=== PATIENT | male | born 2000 | race Caucasian/White ===

== ENCOUNTER 2024-03-31 22:08 | Emergency (ER) | payer OTHER ==
--- NOTE | 2024-03-31 22:43 | ED Physician Documentation ---
PD HPI UPPER EXT INJURY - Stated complaint Stated Complaint: LT SHOULDER INJ - Chief complaint Chief Complaint: Trauma Ext - History obtained from History obtained from: Patient - Additonal information Additional information: The patient comes to the emergency department chief complaint of left shoulder pain after falling out of a nonmoving vehicle this evening at his job at the [employer]. He states he fell directly onto the lateral aspect of his shoulder and felt a "pop". It felt like when he moved his shoulder that it "popped in and out". He points to his AC joint area as the location of the pain and popping sensation. He also indicates some pain going across his shoulder ridge up into the musculature of his neck along the trapezius distribution. He denies any other injuries at this time. PD PAST MEDICAL HISTORY - Past Medical History Past Medical History: No Cardiovascular: None Respiratory: None Neuro: None Endocrine/Autoimmune: None GI: None : None HEENT: None Psych: None Musculoskeletal: None Derm: None - Past Surgical History Past Surgical History: No - Allergies Allergies/Adverse Reactions: Allergies Allergy/AdvReac Type Severity Reaction Status Date / Time No Known Drug Allergies Allergy Verified 03/31/24 22:11 - Social History Does the pt smoke?: No Smoking Status: Never smoker Does the pt drink ETOH?: No Does the pt have substance abuse?: No - Immunizations Immunizations are current?: Yes - POLST Patient has POLST: No PD ED PE NORMAL - Vitals Vital signs reviewed: Yes - General General: Alert and oriented X 3, No acute distress, Well developed/nourished - HEENT HEENT: Atraumatic, EOMI, Moist mucous membranes - Neck Neck: Supple, no meningeal sign - Cardiac Cardiac: Strong equal pulses - Respiratory Respiratory: No respiratory distress - Derm Derm: Normal color, Warm and dry, No rash - Extremities Extremities: No deformity, Other (TTP over L AC joint. Intact ROM passively, except some limitation with internal rotation and abduction after 90 degrees. humeral head palpable in glenoid fossa.) - Neuro Neuro: Alert and oriented X 3 - Psych Psych: Normal mood, Normal affect Results - Vitals Vitals: Oxygen O2 Source Room air - Rads (name of study) L shoulder XR series Relevant Findings:: Final report received, See rad report (neg) PD Medical Decision Making - ED course Complexity details: reviewed results, re-evaluated patient, considered differential, d/w patient ED course: I d/w pt that he has likely sprained his AC joint, based on exam, though there is no separation on XR or clinically. We have also discussed symptomatic management at home, and the expected course of recovery/sx. We have discussed the need for follow-up. Departure - Departure Disposition: 01 Home, Self Care Clinical Impression: Acromioclavicular sprain Qualifiers: Encounter type: initial encounter Laterality: left Qualified Code(s): S43.52XA - Sprain of left acromioclavicular joint, initial encounter Condition: Stable Instructions: ED Sprain AC Joint Comments: Your shoulder x-ray looks good. As we discussed, you have most likely sprained your acromioclavicular joint, The joint that joins the 2 bones that formed the lip/cup of your shoulder joint. This is very common injury when you have a blunt force to the side of your shoulder. In general, these heal up on their own, though there can sometimes be some chronic clicking or pain. [place] or if you want to discuss having an MRI if your symptoms have not improved in the next 2 or 3 weeks. I will give you the next couple of days off work if needed to let your shoulder settle down a bit. You may use ibuprofen and Tylenol to help with the pain. You may also use ice packs. You should avoid any strenuous activities with your shoulder, but should do gentle range of motion to keep it from f reezing up. Forms: Activity restrictions Discharge Date/Time: 03/31/24 23:23
--- NOTE | 2024-03-31 22:55 | XRAY Report ---
PROCEDURE: Shoulder 2+V LT INDICATIONS: pain TECHNIQUE: 3 views of the shoulder were acquired. COMPARISON: None. FINDINGS: Bones: No fractures or dislocations. No suspicious bony lesions. Visualized ribs appear intact. Soft tissues: No suspicious soft tissue calcifications. The visualized lungs are within normal limi ts. IMPRESSION: No acute bony abnormality. Reviewed by: Kris Fu MD on 03/31/2024 10:53 PM PDT Approved by: Kris Fu MD on 03/31/2024 10:53 PM PDT Station ID: [id number]
[2024-03-31 23:29] VITALS: BP 122/70; O2SAT 99
== END 2024-03-31 23:23 | disposition home or self-care (01) ==
LOC: ED 22:08
DX: S43.52XA Sprain of left acromioclavicular joint, initial encounter (principal); W17.89XA Other fall from one level to another, initial encounter; Y93.89 Activity, other specified; Y92.139 Unspecified place military base as the place of occurrence of the external cause; Y99.1 Military activity
CPT/HCPCS: 99283